=== PATIENT | male | born 1965 | race Caucasian/White ===

== ENCOUNTER → 2021-11-03 | Day surgery (SDC) | payer OTHER ==
[~2021-11-03] VITALS: Ht 180.3 cm; Wt 115.7 kg
[~2021-11-03] MED LIST: ASPIRIN81 MG PO; ATORVASTATIN CA40 MG PO; NORCO 5-325 TA1 EACH PO
[2021-11-03 09:09] LABS: HGB 15.1 g/dl (13.2-18.0); MCH 31.5 pg (25.0-31.0); MCHC 34.3 g/dL (32.0-36.0); MCV 91.7 fL (78.0-100.0); MPV 9.7 fL (6.0-9.5); RBC 4.8 M/uL (4.70-6.00); RDW 12.6 % (11.5-14.0); WBC 10.1 K/uL (4.0-10.5)
[2021-11-03 09:20] LABS: BILIRUBIN - TOTAL 0.8 mg/dL (0.2-1.0); BUN/CREAT RATIO (CALC) 17.7 RATIO; CREATININE 0.79 mg/dL (0.67-1.17); GLOBULIN (CALCULATION) 4.1 g/dL; POTASSIUM 4.5 mmol/L (3.5-5.1); TOTAL PROTEIN 8.1 g/dL (6.4-8.2)
== END | disposition home or self-care (01) ==
LOC: FAS 08:22
PROVIDERS: Surgery
DX: K64.1 Second degree hemorrhoids (principal); K57.30 Diverticulosis of large intestine without perforation or abscess without bleeding; E78.5 Hyperlipidemia, unspecified; Z79.899 Other long term (current) drug therapy
CPT/HCPCS: 36415; 80053; J1100; J2250; J2704; J7120